=== PATIENT | female | born 1955 | race Caucasian/White ===

== ENCOUNTER 2022-04-02 08:52 | Emergency (ER) | payer MEDICAID ==
[~2022-04-02] VITALS: Ht 167.6 cm; Wt 86.2 kg
[2022-04-02 09:04] VITALS: BP_SYST 116
--- NOTE | 2022-04-02 09:05 | NUR ---
Patient to ER bed 7 to gown for evaluation. Side rails up.
--- NOTE | 2022-04-02 09:06 | NUR ---
Pt coming from home ambulatory with steady gait c/o left pinky finger pain 8/10 swelling, abrasion, and brusing noted. Pt states she smashed finger on her car door yesterday. Sensation still intact and cap refill <3 seconds. Pt able to move finger as well. A&Ox4. VSS. NKA. Has hx of Pituitary cancer. Bed in lowest position.
--- NOTE | 2022-04-02 09:08 | NUR ---
ER at bedside examining patient.
--- NOTE | 2022-04-02 09:30 | NUR ---
Cleaned wound and slpint placed on left pinky. Pt has no c/o and is refusing for x-rays to be taken.
--- NOTE | 2022-04-02 09:51 | NUR ---
Patient does not wish to proceed with medical care recommended by Dr. Wren. Patient given information related to possible complications, up to and including , which could occur as a result of leaving hospital at this time. Patient verbalizes understanding of risks involved leaving against medical advice. Patient has signed AMA form.
== END 2022-04-02 09:51 | disposition left against medical advice (07) ==
LOC: SED 08:52
DX: S67.197A Crushing injury of left little finger, initial encounter (principal); Z79.899 Other long term (current) drug therapy; W23.1XXA Caught, crushed, jammed, or pinched between stationary objects, initial encounter; Y93.89 Activity, other specified; Y92.89 Other specified places as the place of occurrence of the external cause; Y99.8 Other external cause status
CPT/HCPCS: 99283

== ENCOUNTER 2023-03-16 10:35 | Emergency (ER) | payer MEDICARE, MEDICAID ==
[~2023-03-16] VITALS: Ht 167.6 cm; Wt 49.4 kg
--- NOTE | 2023-03-16 10:40 | NUR ---
Patient to ER bed 08 to gown for evaluation. Side rails up.
--- NOTE | 2023-03-16 10:45 | NUR ---
Pt brought by self, A&Ox4, pt presents to ER with bodyaches, SOB with exertion, pt had covid +test last Wednesday , skin pink and warm, cap refill <3, respirations even and unlabored, will cont to monitor.
[2023-03-16 10:52] VITALS: BP_SYST 106; PULSE 102; RESP 18; TEMP 97.2; O2SAT 96
--- NOTE | 2023-03-16 10:57 | NUR ---
Dr Plata evaluating patient at bedside
[2023-03-16] MEDS ORDERED: NIRM1TAB PO (10:58)
--- NOTE | 2023-03-16 11:28 | NUR ---
Patient given written and verbal discharge instructions and verbalizes understanding. ER MD discussed with patient the results and treatment provided. Patient in stable condition. ID arm band removed. Rx of Paxlovid given. Patient educated on pain management and to follow up with PMD. Pain Scale 2/10. Opportunity for questions provided and answered. Medication side effect fact sheet provided.
[2023-03-16 11:29] VITALS: BP_SYST 106; PULSE 102; RESP 18; TEMP 97.2; O2SAT 96
== END 2023-03-16 11:28 | disposition home or self-care (01) ==
LOC: SED 10:35
DX: U07.1 COVID-19 (principal); R05.9 Cough, unspecified; R09.81 Nasal congestion; R50.9 Fever, unspecified; Z79.899 Other long term (current) drug therapy
CPT/HCPCS: 99283

== ENCOUNTER 2023-03-22 10:40 | Emergency (ER) | payer MEDICARE, MEDICAID ==
[~2023-03-22] VITALS: Ht 167.6 cm; Wt 86.2 kg
[~2023-03-22 10:40] MED LIST: NIRM1TAB PO
[2023-03-22 10:56] VITALS: BP_SYST 137; PULSE 104; RESP 18; TEMP 97.1; O2SAT 95
[2023-03-22] MEDS ORDERED: BENZ1LOZ73 PO (12:03)
[2023-03-22] MEDS ORDERED: PRED50TA PO (12:03)
[2023-03-22 12:27] VITALS: BP_SYST 126; PULSE 74; RESP 18; TEMP 97.3; O2SAT 97
== END 2023-03-22 12:28 | disposition home or self-care (01) ==
LOC: SED 10:40
DX: J02.9 Acute pharyngitis, unspecified (principal); Z88.1 Allergy status to other antibiotic agents; Z85.850 Personal history of malignant neoplasm of thyroid; Z79.899 Other long term (current) drug therapy
CPT/HCPCS: 71045; 99283